=== PATIENT | male | born 1980 | race Caucasian/White ===

== ENCOUNTER 2016-06-11 08:43 | Observation (INO) | payer BC ==
[2016-06-11 08:51] VITALS: BMI 26.6
[2016-06-11] MEDS ORDERED: Oxycodone/Acetaminophen 5/325 mg Tab PO STA (09:33)
[2016-06-11] MEDS ORDERED: Oxycodone/Acetaminophen 5/325 mg Tab ONE (09:36)
[2016-06-11] MEDS ORDERED: Tetanus/Diphtheria Toxoids 0.5 ml Syringe IM ONE ×2 (10:05→10:25)
[2016-06-11] MEDS ORDERED: Bacitracin 500 Units/gm Oint Foilpak UD ONE (10:08)
--- NOTE | 2016-06-11 10:34 | C.PDOC ---
History Of Present Illness A 35 year old male is BIBA for the evaluation of right ankle pain and significant swelling that developed prior to arrival. Patient sustained the injury while walking down the steps at the [facility] train station. Patient states, since the injury was unable to ambulate and put weight on the right ankle due to severe pain. Patient denies any head injury, LOC, syncope, neck pain, CP, abd. pain, N/V, denies injury to B/L UEs, denies numbness, sensory or vascular deficits to Right foot. AT the time of evaluation, appears in pain. Time Seen by Provider: 06/11/16 09:31 Chief Complaint (Nursing): Lower Extremity Problem/Injury History Per: Patient History/Exam Limitations: no limitations Onset/Duration Of Symptoms: Hrs Current Symptoms Are (Timing): Still Present Severity: Severe Recent travel outside of the [place]: No - Ankle/Foot Description Of Injury: Fell Currently Unable To: Bear Weight, Other (Ambulate) Past Medical History Reviewed: Historical Data, Nursing Documentation, Vital Signs Vital Signs: Last Vital Signs Temp 98.7 F 06/11/16 16:42 Pulse 89 06/11/16 16:42 Resp 20 06/11/16 16:42 BP 179/107 H 06/11/16 16:42 Pulse Ox 100 06/11/16 16:42 Family History: States: No Known Family Hx - Social History Hx Alcohol Use: No Hx Substance Use: No - Immunization History Hx Tetanus Toxoid Vaccination: Yes Hx Influenza Vaccination: Yes Hx Pneumococcal Vaccination: Yes Review Of Systems Except As Marked, All Systems Reviewed And Found Negative. Constitutional: Negative for: Fever, Chills Gastrointestinal: Negative for: Nausea, Vomiting, Diarrhea Musculoskeletal: Positive for: Other (Right ankle pain and swelling. Unable to ambulate and bear weight.) Neurological: Negative for: Weakness, Numbness Physical Exam - Physical Exam Appears: Well, Non-toxic Skin: Normal Color, Warm, Dry, No Ecchymosis Head: Atraumatic, Normacephalic Eye(s): bilateral: PERRL Nose: Normal, No Discharge, No Epistaxis, No Deformity, No Tenderness Throat: Normal Neck: Normal ROM, No Midline Cervical Tenderness, No Paracervical Tenderness, Supple Chest: Symmetrical, No Deformity, No Tenderness Cardiovascular: Rhythm Regular Respiratory: Normal Breath Sounds, No Rales, No Rhonchi, No Wheezing Gastrointestinal/Abdominal: Soft, No Tenderness, No Guarding, No Rebound Back: No Vertebral Tenderness, No Paraspinal Tenderness Extremity: Normal ROM (of B/L UEs and LLE.), Tenderness (severe diffuse tenderness and ayala edema more over anterior aspect and lateral malleolus.), No Calf Tenderness, Capillary Refill (less than 2sec to Right foot), Other (Right foot appears cyanotic with good peripheral pulses DP, PT, sensation intact. Snall puncture wounds noted to Right foot lateral dorsal aspect with scant bloody discharges.) Pulses: Left Dorsalis Pedis: Normal, Right Dorsalis Pedis: Normal Neurological/Psych: Oriented x3, Normal Speech, Normal Motor, Normal Sensation, Normal Reflexes ED Course And Treatment - Laboratory Results Result Diagrams: 06/11/16 12:46 06/11/16 12:46 Lab Interpretation: No Acute Changes O2 Sat by Pulse Oximetry: 99 Pulse Ox Interpretation: Normal - Other Rad X-ray X-Ray: Viewed By Me, Read By Radiologist Interpretation: Right Ankle X-ray Impression: As read by Dr. Doherty; Medial and lateral malleolar soft tissue swelling. If pain persists, consider MRI. Right Foot X-ray impression: Impression: As read by Dr. Doherty; Mild hallux valgus deformity. Bipartite lateral sesamoid bone. No evidence for acute displaced fracture or dislocation. Prominent soft tissue swelling at the ankle. If pain persists, consider MRI. Right Tibia/Fibula X-ray Impression: As read by Dr. Doherty; Negative acute. If pain persists, consider MRI. Soft tissue swelling. - CT Scan/US Right Ankle CT Other Rad Studies (CT/US): Read By Radiologist, Radiology Report Reviewed CT/US Interpretation: Right Ankle CT Impression: As read by Dr. Doherty;. 1. Prominent medial and lateral malleolar soft tissue swelling; more prominent on the lateral side. 2. Extensive air noted surrounding the ankle joint space extending into the soft tissues. Underlying gas gangrene can't be excluded on the basis of these images. 3. Small curvilinear ossific density seen distal to the medial malleolus of the tibia concerning for a small avulsion fracture. 4. Curvilinear lucency concerning for a fracture deformity seen at the medial aspect of the mid talus extending to the posterior aspect of the sinus tarsi and what appears to be the middle subtalar joint space. 5. Circumferential reticulation and edema within the subcutaneous soft tissues. 6. Incidentally noted is a small rounded ossific density seen at the lateral base of the 1st metatarsal bone. This is of uncertain clinical etiology and may represent a small accessory ossicle. Small avulsion injury can't be excluded. Clinical correlation to site of pain. This is best seen on series 2, image 44. 7. Lucency through the medial sesamoid bone may represent a bipartite sesamoid bone. Clinical correlation. Progress Note: Initailly xrays or Right anle/foot review and appears without acute fx/dislocation. Findings were discussed with pt and CT Right ankle offered due to significant finidngsof edema and cyanosis to Right foot. Pt agrees. RLE: pulses (DP, PT) palpable, no neurovascular deficits distally to injury. AT 12:00, pt was evaluated by ortho PA and antibiotic Ancef 2gIV recommend. Will consul ortho on-call for further tx. At 12:05, CT imaging discussed with radiologist , medial malleolus and talus fx with extensive amount of air in ankle. Ortho PA Brialy recommend NPO now. At 13:50 , as per Otmarie Doty, case will be taken care by [employer]. Podiatry resident evaluated pt in ED,case discussed with [employer] on-call and foot irrigation with observation admission recommend. Splint applied by Podiatry resident. Admission offered to patient due to radiological finidngs: Right distal tibial fracture, talus fracture with moderate amount of intra- articular air r/o foot gangrene. Admission accepted byt patient. Case discussed with medicine on-call , ID consult recommend. Zosyn IV requested at present time. Disposition - Disposition Disposition: HOSPITALIZED Disposition Time: 14:53 Condition: STABLE - Clinical Impression Clinical Impression: Fracture of distal end of tibia, Gangrene - Scribe Statement The provider has reviewed the documentation as recorded by the Kimberlyibconchis Jacobson All medical record entries made by the Kimberlyibconchis were at my direction and personally dictated by me. I have reviewed the chart and agree that the record accurately reflects my personal performance of the history, physical exam, medical decision making, and the department course for this patient. I have also personally directed, reviewed, and agree with the discharge instructions and disposition.
--- NOTE | 2016-06-11 10:45 | RAD ---
Right ankle three views History: Injury. Comparison: None available. Findings: Prominent lateral malleolar and milder medial malleolar soft tissue swelling. No evidence for acute displaced fracture or dislocation. Impression: Medial and lateral malleolar soft tissue swelling. If pain persists, consider MRI.
--- NOTE | 2016-06-11 10:50 | RAD ---
Right foot three views History: Injury. Comparison: None available. Findings: Mild hallux valgus deformity. Bipartite lateral sesamoid bone. No evidence for acute displaced fracture or dislocation. Prominent soft tissue swelling at the ankle. Impression: Mild hallux valgus deformity. Bipartite lateral sesamoid bone. No evidence for acute displaced fracture or dislocation. Prominent soft tissue swelling at the ankle. If pain persists, consider MRI.
--- NOTE | 2016-06-11 11:02 | RAD ---
Right tibia and fibula two views History: Injury. Comparison: None available. Findings: No evidence of acute displaced fracture or dislocation. Prominent soft tissue swelling overlying the medial and lateral malleolus. Impression: Negative acute. If pain persists, consider MRI. Soft tissue swelling.
[2016-06-11] MEDS ORDERED: ceFAZolin IV 2 gm in Dextrose 1 GM/50 ML BAG IVPB STA (12:04)
[2016-06-11] MEDS ORDERED: ceFAZolin IV 1 gm in Dextrose 0 GM/0 ML BAG IVPB ONE (12:16)
[2016-06-11] MEDS ORDERED: Sodium Chloride 0.9% 1,000 ML IV ONE (12:18)
--- NOTE | 2016-06-11 12:26 | CT ---
CT right ankle History: Ankle injury. Comparison: None available. Technique: Multiple contiguous axial images were performed through the right ankle without the use of intravenous contrast. Subsequently, sagittal and coronal reformatted images were obtained. This CT exam was performed using one or more of the following dose reduction techniques: Automated exposure control, adjustment of the mA and/or kV according to patient size, and/or use of iterative reconstruction technique. Findings: Prominent medial and lateral malleolar soft tissue swelling; more prominent on the lateral side. Extensive air noted surrounding the ankle joint space extending into the soft tissues. Underlying gas gangrene can't be excluded on the basis of these images. Small curvilinear ossific density seen distal to the medial malleolus of the tibia concerning for a small avulsion fracture. Curvilinear lucency concerning for a fracture deformity seen at the medial aspect of the mid talus extending to the posterior aspect of the sinus tarsi and what appears to be the middle subtalar joint space. Circumferential reticulation and edema within the subcutaneous soft tissues. Incidentally noted is a small rounded ossific density seen at the lateral base of the 1st metatarsal bone. This is of uncertain clinical etiology and may represent a small accessory ossicle. Small avulsion injury can't be excluded. Clinical correlation to site of pain. This is best seen on series 2, image 44. Lucency through the medial sesamoid bone may represent a bipartite sesamoid bone. Clinical correlation. Impression: 1. Prominent medial and lateral malleolar soft tissue swelling; more prominent on the lateral side. 2. Extensive air noted surrounding the ankle joint space extending into the soft tissues. Underlying gas gangrene can't be excluded on the basis of these images. 3. Small curvilinear ossific density seen distal to the medial malleolus of the tibia concerning for a small avulsion fracture. 4. Curvilinear lucency concerning for a fracture deformity seen at the medial aspect of the mid talus extending to the posterior aspect of the sinus tarsi and what appears to be the middle subtalar joint space. 5. Circumferential reticulation and edema within the subcutaneous soft tissues. 6. Incidentally noted is a small rounded ossific density seen at the lateral base of the 1st metatarsal bone. This is of uncertain clinical etiology and may represent a small accessory ossicle. Small avulsion injury can't be excluded. Clinical correlation to site of pain. This is best seen on series 2, image 44. 7. Lucency through the medial sesamoid bone may represent a bipartite sesamoid bone. Clinical correlation. These findings were relayed to Huma Olsen at 12:10 p.m. on 06/11/2016.
[2016-06-11] MEDS ORDERED: ceFAZolin 1 gm FROZEN Premix 2 GM/100 ML ML IVPB ONE (12:46)
[2016-06-11] MEDS ORDERED: Sodium Chloride 0.9% 1,000 ML ONE (12:47)
[2016-06-11 12:54] LABS: BASO # 0.1 K/uL (0.0-0.2); BASO % 0.8 % (0.0-2.0); EOS # 0.1 K/uL (0.0-0.7); EOS % 0.8 % (0.0-4.0); HEMATOCRIT 44.6 % (35.0-51.0); LYMPH # 2.3 K/uL (1.0-4.3); MEAN CELL VOLUME 88.9 fL (80.0-94.0); MEAN CORPUSCULAR HEMOGLOBIN 29.8 pg (27.0-31.0); MEAN CORPUSCULAR HGB CONC 33.5 g/dL (33.0-37.0); MONO # 0.7 K/uL (0.0-0.8); MONO % 5.8 % (0.0-10.0); RED CELL DISTRIBUTION WIDTH 12.9 % (11.5-14.5); WHITE BLOOD COUNT 11.9 K/uL (4.8-10.8)
[2016-06-11 13:08] LABS: CHLORIDE 100 mmol/L (98-107); SODIUM 139 mmol/L (132-148)
[2016-06-11 13:11] LABS: CARBON DIOXIDE 26 mmol/L (22-30); GFR AFRICAN-AMERICAN > 60
[2016-06-11 13:12] LABS: BLOOD UREA NITROGEN 7 mg/dL (9-20); CALCIUM 9.3 mg/dl (8.6-10.4); GLUCOSE,RANDOM 92 mg/dL (75-110)
--- NOTE | 2016-06-11 13:59 | CP.PCM.CON ---
History of Present Illness - History of Present Illness History of Present Illness: Orthopedic consultation requested Dr. Orta for right ankle injury 35M complains of severe right ankle pain and swelling after falling [place] stairs [place] train station. He is unable to bear weight after the injury. He denies numbness/tingling. Denies pain in other extremities. Denies CP/SOB/dizziness preceding fall. He denies any obvious dislocation or spontaneous reduction sensation. PMH: seasonal allergies PSH: denies NKDA smokes 2-3 cigarettes/day Review of Systems - Review of Systems All systems: reviewed and no additional remarkable complaints except - Constitutional Additional comments: denies fatigue - Cardiovascular Cardiovascular: As Per HPI - Respiratory Respiratory: As Per HPI - Musculoskeletal Musculoskeletal: As Per HPI - Integumentary Integumentary: Wounds - Neurological Neurological: As Per HPI - Hematologic/Lymphatic Hematologic: absent: As Per HPI, Easy Bleeding, Easy Bruising, Lymphadenopathy, Other Past Patient History - Past Social History Smoking Status: Never Smoked - PSYCHIATRIC Hx Substance Use: No - SURGICAL HISTORY Hx Surgeries: No Meds Allergies/Adverse Reactions: Allergies Allergy/AdvReac Type Severity Reaction Status Date / Time No Known Allergies Allergy Verified 06/11/16 08:49 - Medications Medications: Current Medications Sodium Chloride (Sodium Chloride 0.9%) 1,000 mls @ 200 mls/hr IV .Q5H ONE Stop: 06/11/16 17:17 Last Admin: 06/11/16 13:00 Dose: 200 mls/hr Physical Exam - Constitutional Appears: Well, In Acute Distress - Head Exam Head Exam: ATRAUMATIC - ENT Exam ENT Exam: Mucous Membranes Moist - Neck Exam Neck exam: Positive for: Full Rom, Normal Inspection - Respiratory Exam Respiratory Exam: NORMAL BREATHING PATTERN - Cardiovascular Exam Additional comments: +DP/PT pulses, palpable - Extremities Exam Additional comments: +flex/ext of all toes and great toe, but limited by pain. Sensation intact to sural/saph/SP/DP/med/lat plantar nerves. ? slightly decreased to 1st dorsal webspace. Lower leg compartments soft Minimal pain with passive ROM toes noted laxity with anterior drawer, +pain no right knee pain, no proximal fibular tenderness - Expanded Lower Extremities Exam Right Neuro vacular tendon exam: no vascular compromise Gait: not tested/not observed - Neurological Exam Neurological exam: Alert, Oriented x3 - Psychiatric Exam Psychiatric exam: Normal Affect, Normal Mood - Skin Skin Exam: Normal Color, Warm Additional comments: 3 wounds to lateral ankle noted, anteriorly over distal tib/fib joint, near inferior border of lateral malleolus, and posterior to lateral malleolus. all approx 6-8mm, active but minimal bleeding from inferior wound. Extensive STS to medial and lateral ankle and to foot. Results - Vital Signs Recent Vital Signs: Last Vital Signs Temp 97.6 F 06/11/16 08:59 Pulse 66 06/11/16 08:59 Resp 18 06/11/16 08:59 BP 160/96 H 06/11/16 08:59 Pulse Ox 99 06/11/16 12:29 - Labs Result Diagrams: 06/11/16 12:46 06/11/16 12:46 Labs: Laboratory Results - last 24 hr 06/11/16 06/11/16 06/11/16 12:46 12:46 12:46 WBC 11.9 H RBC 5.02 Hgb 15.0 Hct 44.6 MCV 88.9 MCH 29.8 MCHC 33.5 RDW 12.9 Plt Count 267 MPV 9.0 Neut % (Auto) 73.6 Lymph % (Auto) 19.0 L [place] % (Auto) 5.8 Eos % (Auto) 0.8 Baso % (Auto) 0.8 Neut # 8.8 H Lymph # 2.3 [place] # 0.7 Eos # 0.1 Baso # 0.1 PT 10.8 INR 1.0 APTT 33 Sodium 139 Potassium 4.0 Chloride 100 Carbon Dioxide 26 Anion Gap 17 BUN 7 L Creatinine 0.7 L Est GFR ( Amer) > 60 Est GFR (Non-Af Amer) > 60 Random Glucose 92 Calcium 9.3 Assessment & Plan (1) Fracture of right talus Assessment and Plan: comminuted and minimally displaced Status: Acute (2) Avulsion fracture of medial malleolus of right tibia Assessment and Plan: suspect possible deltoid tear/avulsion Status: Acute (3) Open dislocation of ankle Assessment and Plan: noted on CT substantial amount of air in ankle joint and surrounding soft tissues Due to location of lateral ankle wounds and extensive soft tissue swelling, suspect possible open ankle or subtalar dislocation/subluxation with spontaneous reduction versus severe sprain. Smoking cessation advised tetanus already given. Ancef 2gm IV ordered at this time. Elevation, pain medication, irrigation recommended. NPO ordered for now. case discussed with Dr. Orta, orthopedic surgeon targeting acquisition officer. He recommends podiatry consultation. D/w Dr. Fishman and podiatry resident, agree to take over care. Will defer further workup and management to medical office representative as per Dr. Orta. ER PA notified of transfer of care around 1pm. Status: Suspected Priority: High Radiology Interpretation - Radiology Interpretation #2 Interpretation: Patient Name / ID : BREANNA NEVAREZ / [id number] Exam Date : 06/11/2016 11:04:41 ( Approved ) Study Comment : Sex / Age : M / 35Y Creator : Augie Doherty MD Dictator : Augie Doherty MD Patient Registration Specialist : Equine Manager : Augie Doherty MD Approver2 : Report Date : 06/11/2016 12:24:28 My Comment : CT right ankle History: Ankle injury. Comparison: None available. Technique: Multiple contiguous axial images were performed through the right ankle without the use of intravenous contrast. Subsequently, sagittal and coronal reformatted images were obtained. This CT exam was performed using one or more of the following dose reduction techniques: Automated exposure control, adjustment of the mA and/or kV according to patient size, and/or use of iterative reconstruction technique. Findings: Prominent medial and lateral malleolar soft tissue swelling; more prominent on the lateral side. Extensive air noted surrounding the ankle joint space extending into the soft tissues. Underlying gas gangrene can't be excluded on the basis of these images. Small curvilinear ossific density seen distal to the medial malleolus of the tibia concerning for a small avulsion fracture. Curvilinear lucency concerning for a fracture deformity seen at the medial aspect of the mid talus extending to the posterior aspect of the sinus tarsi and what appears to be the middle subtalar joint space. Circumferential reticulation and edema within the subcutaneous soft tissues. Incidentally noted is a small rounded ossific density seen at the lateral base of the 1st metatarsal bone. This is of uncertain clinical etiology and may represent a small accessory ossicle. Small avulsion injury can't be excluded. Clinical correlation to site of pain. This is best seen on series 2, image 44. Lucency through the medial sesamoid bone may represent a bipartite sesamoid bone. Clinical correlation. Impression: 1. Prominent medial and lateral malleolar soft tissue swelling; more prominent on the lateral side. 2. Extensive air noted surrounding the ankle joint space extending into the soft tissues. Underlying gas gangrene can't be excluded on the basis of these images. 3. Small curvilinear ossific density seen distal to the medial malleolus of the tibia concerning for a small avulsion fracture. 4. Curvilinear lucency concerning for a fracture deformity seen at the medial aspect of the mid talus extending to the posterior aspect of the sinus tarsi and what appears to be the middle subtalar joint space. 5. Circumferential reticulation and edema within the subcutaneous soft tissues. 6. Incidentally noted is a small rounded ossific density seen at the lateral base of the 1st metatarsal bone. This is of uncertain clinical etiology and may represent a small accessory ossicle. Small avulsion injury can't be excluded. Clinical correlation to site of pain. This is best seen on series 2, image 44. 7. Lucency through the medial sesamoid bone may represent a bipartite sesamoid bone. Clinical correlation. These findings were relayed to Huma Olsen at 12:10 p.m. on 06/11/2016. Dictator : Augie Doherty MD Patient Registration Specialist : Equine Manager : Augie Doherty MD Approver2 : Report Date : 06/11/2016 10:04:20 My Comment : Right tibia and fibula two views History: Injury. Comparison: None available. Findings: No evidence of acute displaced fracture or dislocation. Prominent soft tissue swelling overlying the medial and lateral malleolus. Impression: Negative acute. If pain persists, consider MRI. Soft tissue swelling. - Radiology Interpretation #3 Interpretation: atient Name / ID : BREANNA NEVAREZ / [id number] Exam Date : 06/11/2016 09:37:35 ( Approved ) Study Comment : Sex / Age : M / 35Y Creator : MANUEL LOYA Dictator : Augie Doherty MD Patient Registration Specialist : Equine Manager : Augie Doherty MD Approver2 : Report Date : 06/11/2016 10:04:20 My Comment : Right foot three views History: Injury. Comparison: None available. Findings: Mild hallux valgus deformity. Bipartite lateral sesamoid bone. No evidence for acute displaced fracture or dislocation. Prominent soft tissue swelling at the ankle. Impression: Mild hallux valgus deformity. Bipartite lateral sesamoid bone. No evidence for acute displaced fracture or dislocation. Prominent soft tissue swelling at the ankle. If pain persists, consider MRI. Patient Name / ID : BREANNA NEVAREZ / [id number] Exam Date : 06/11/2016 09:37:24 ( Addendum_Approved ) Study Comment : Sex / Age : M / 35Y Creator : MANUEL LOYA Dictator : Augie Doherty MD Patient Registration Specialist : Equine Manager : Augie Doherty MD Approver2 : Report Date : 06/11/2016 10:04:21 My Comment : ADDENDUM: Addendum: Small ossific density seen distal to the medial malleolus suggestive for small avulsion injury. Curvilinear lucency through the medial aspect of the mid talus concerning for possible fracture deformity. Suggestion of air noted within the subcutaneous soft tissues for which underlying gas gangrene can not be excluded. [ Addendum Report Added by Augie Doherty MD at 06/11/2016 12:26:30 ] Right ankle three views History: Injury. Comparison: None available. Findings: Prominent lateral malleolar and milder medial malleolar soft tissue swelling. No evidence for acute displaced fracture or dislocation. Impression: Medial and lateral malleolar soft tissue swelling. If pain persists, consider MRI.
--- NOTE | 2016-06-11 14:44 | CP.PCM.CON ---
History of Present Illness - History of Present Illness History of Present Illness: Podiatry consult note- Dr. Parada 35 year old male with PMHx of seasonal allergies, presenting to the ED with a chief complaint of right foot and ankle pain and swelling after [place]pping [place] the stairs [place] Patient states that he felt his ankle twist inward underneath him and states that he rolled on the stairs. Patient denies hitting any sharp objects as he descended the staircase. Patient denies n/v/f/c/sob, denies any other injuries to his body. Patient received tetanus prophylaxis and IV Ancef upon admission to the ED. X-rays and CT scan performed. Review of Systems - Constitutional Constitutional: As Per HPI Past Patient History - Past Social History Smoking Status: Never Smoked - PSYCHIATRIC Hx Substance Use: No - SURGICAL HISTORY Hx Surgeries: No Meds Allergies/Adverse Reactions: Allergies Allergy/AdvReac Type Severity Reaction Status Date / Time No Known Allergies Allergy Verified 06/11/16 08:49 - Medications Medications: Current Medications Sodium Chloride (Sodium Chloride 0.9%) 1,000 mls @ 200 mls/hr IV .Q5H ONE Stop: 06/11/16 17:17 Last Admin: 06/11/16 13:00 Dose: 200 mls/hr Physical Exam - Constitutional Appears: Well, Non-toxic, No Acute Distress - Neurological Exam Neurological exam: Oriented x3 - Psychiatric Exam Psychiatric exam: Normal Affect, Normal Mood - Additional Findings Additional findings: DERMATOLOGIC: Right lower extremity has three small puncture wounds to the lateral aspect of the foot and ankle, the two proximal wounds are superficial while the most distal wound is deep with mild sanguinous drainage. There is no fluid or blood expressed with manual compression of the soft tissue. The skin color is mildly blanched at the area of maximal edema, however distal to the wound skin color is normal.. There is mild ecchymosis posteriorly. VASCULAR: DP/PT pulses non palpable on the right secondary to severe edema. There is severe localized and diffuse edema to the extremity, localized to the lateral foot and ankle. Skin temperature is within normal limits. NEUROLOGIC: There is mild decreased sensation to the lateral aspect of the foot, motor function is intact both proximally and distally to all 10 toes ORTHOPEDIC: Severe pain on palpation to the right ankle and foot, ankle ROM is slighty limited due to edema Imaging: right lower extremity CT scan Impression: 1. Prominent medial and lateral malleolar soft tissue swelling; more prominent on the lateral side. 2. Extensive air noted surrounding the ankle joint space extending into the soft tissues. Underlying gas gangrene can't be excluded on the basis of these images. 3. Small curvilinear ossific density seen distal to the medial malleolus of the tibia concerning for a small avulsion fracture. 4. Curvilinear lucency concerning for a fracture deformity seen at the medial aspect of the mid talus extending to the posterior aspect of the sinus tarsi and what appears to be the middle subtalar joint space. 5. Circumferential reticulation and edema within the subcutaneous soft tissues. 6. Incidentally noted is a small rounded ossific density seen at the lateral base of the 1st metatarsal bone. This is of uncertain clinical etiology and may represent a small accessory ossicle. Small avulsion injury can't be excluded. Clinical correlation to site of pain. This is best seen on series 2, image 44. 7. Lucency through the medial sesamoid bone may represent a bipartite sesamoid bone. Clinical correlation. Results - Vital Signs Recent Vital Signs: Last Vital Signs Temp 98.9 F 06/11/16 13:00 Pulse 73 06/11/16 14:18 Resp 18 06/11/16 14:18 BP 139/86 06/11/16 14:18 Pulse Ox 99 06/11/16 14:18 - Labs Result Diagrams: 06/11/16 12:46 06/11/16 12:46 Labs: Laboratory Results - last 24 hr 06/11/16 06/11/16 06/11/16 12:46 12:46 12:46 WBC 11.9 H RBC 5.02 Hgb 15.0 Hct 44.6 MCV 88.9 MCH 29.8 MCHC 33.5 RDW 12.9 Plt Count 267 MPV 9.0 Neut % (Auto) 73.6 Lymph % (Auto) 19.0 L [place] % (Auto) 5.8 Eos % (Auto) 0.8 Baso % (Auto) 0.8 Neut # 8.8 H Lymph # 2.3 [place] # 0.7 Eos # 0.1 Baso # 0.1 PT 10.8 INR 1.0 APTT 33 Sodium 139 Potassium 4.0 Chloride 100 Carbon Dioxide 26 Anion Gap 17 BUN 7 L Creatinine 0.7 L Est GFR ( Amer) > 60 Est GFR (Non-Af Amer) > 60 Random Glucose 92 Calcium 9.3 Assessment & Plan - Assessment and Plan (Free Text) Assessment: 35 year old male with right non displaced talar fracture, and small avulsion fracture of the tibia with soft tissue puncture wounds Plan: Patient seen and evaluated, d/w attending Dr. Parada CT scan and x-rays reviewed Puncture wounds irrigated with saline betadine solution, foot dressed with xeroform, DSD and posterior splint applied to RLE Patient to remain NWB to the RLE Patient to ice and elevate the RLE Will monitor patient overnight for worsening of symptoms Patient to continue IV abx Podiatry will continue to follow
[2016-06-11] MEDS ORDERED: Piperacillin/Tazobact 3.375 gm 100 ML IV STA (14:50)
[2016-06-11] MEDS ORDERED: Morphine 4 MG/ML VIAL ONE (15:15)
[2016-06-11] MEDS ORDERED: Piperacillin/Tazobact 3.375 gm 100 ML IVPB ONE (15:16)
[2016-06-11 15:36] VITALS: RESP 20
[2016-06-11] MEDS: Morphine 4 MG/ML VIAL IVP PRN (16:46)
--- NOTE | 2016-06-11 18:35 | CP.PCM.HP ---
History of Present Illness - History of Present Illness History of Present Illness: 35-year-old maleis BIBA for the evaluation of right ankle pain and significant swelling that developed prior to arrival. Patient sustained the injury [place] Patient states, since the injury was unable to ambulate and put weight on the right ankle due to severe pain. Patient denies any heavy injury, LOC, syncope, neck pain, chest pain, abdominal pain, nausea/vomiting, denies injury to bilateral upper extremities, denies numbness, sensory or vascular deficits right foot. At the time of evaluation, appears in pain. Present on Admission - Present on Admission Any Indicators Present on Admission: No Past Patient History - Past Medical History & Family History Past Medical History?: No - Past Social History Smoking Status: Never Smoked - MUSCULOSKELETAL/RHEUMATOLOGICAL Hx Falls: Yes - PSYCHIATRIC Hx Substance Use: No - SURGICAL HISTORY Hx Surgeries: Yes Other/Comment: [place] teeth removal - ANESTHESIA Hx Anesthesia: Yes Hx Anesthesia Reactions: No Hx Malignant Hyperthermia: No Has any member of the family had a problem w/ anesthesia?: No Meds Allergies/Adverse Reactions: Allergies Allergy/AdvReac Type Severity Reaction Status Date / Time No Known Allergies Allergy Verified 06/11/16 08:49 Physical Exam - Constitutional Appears: Well - Head Exam Head Exam: ATRAUMATIC, NORMAL INSPECTION, NORMOCEPHALIC - Eye Exam Eye Exam: EOMI, Normal appearance, PERRL Pupil Exam: NORMAL ACCOMODATION, PERRL - ENT Exam ENT Exam: Mucous Membranes Moist, Normal Exam - Respiratory Exam Respiratory Exam: Decreased Breath Sounds - Cardiovascular Exam Cardiovascular Exam: REGULAR RHYTHM, +S1, +S2 - GI/Abdominal Exam GI & Abdominal Exam: Diminished Bowel Sounds, Soft - Rectal Exam Rectal Exam: Deferred Results - Vital Signs Recent Vital Signs: Last Vital Signs Temp 98.7 F 06/11/16 16:42 Pulse 89 06/11/16 16:42 Resp 20 06/11/16 16:42 BP 179/107 H 06/11/16 16:42 Pulse Ox 100 06/11/16 16:42 - Labs Result Diagrams: 06/11/16 12:46 06/11/16 12:46 Assessment & Plan (1) Avulsion fracture of medial malleolus of right tibia Status: Acute (2) Fracture of right talus Status: Acute (3) Open dislocation of ankle Status: Suspected Priority: High - Assessment and Plan (Free Text) Plan: Labs reviewed Consults Pain meds Dr. Parada Ice application and elevation of right lower extremity Antibiotics
[2016-06-11] MEDS: Piperacillin/Tazobact 3.375 GM in Sodium Chloride 0.9% 100 ML IVPB SCH (22:40)
[2016-06-12] MEDS: Morphine 4 MG/ML VIAL IVP PRN ×3 (00:21→15:21)
[2016-06-12] MEDS: Piperacillin/Tazobact 3.375 GM in Sodium Chloride 0.9% 100 ML IVPB SCH (05:18)
[2016-06-12 07:57] VITALS: O2SAT 98
--- NOTE | 2016-06-12 08:50 | CP.PCM.PN ---
Subjective - Date & Time of Evaluation Date of Evaluation: 06/12/16 Time of Evaluation: 08:48 - Subjective Subjective: Patient seen and evaluated at bedside this morning, NAD. Patient states that pain is improved since yesterday, state that peak of pain occurred around 5 pm yesterday. Patient denies n/v/f/c/sob. Posterior splint is clean dry and intact to the RLE. No new complaints at this time. Objective - Vital Signs/Intake and Output Vital Signs (last 24 hours): Temp Pulse Resp BP Pulse Ox 98.1 F 84 20 159/105 H 98 06/12/16 07:56 06/12/16 07:56 06/12/16 07:56 06/12/16 07:56 06/12/16 07:56 Intake and Output: 06/12/16 06/12/16 06:59 18:59 Intake Total 400 Output Total 1400 Balance -1000 - Medications Medications: Current Medications Enoxaparin Sodium (Lovenox) 40 mg SC DAILY [facility] Piperacillin Sod/Tazobactam (Sod 3.375 gm/ Sodium Chloride) 100 mls @ 200 mls/ hr IVPB Q8H [facility] Last Admin: 06/12/16 05:18 Dose: 200 mls/hr Morphine Sulfate (Morphine) 4 mg IVP Q6 PRN PRN Reason: Pain, severe (8-10) Last Admin: 06/12/16 08:03 Dose: 4 mg Pantoprazole Sodium (Protonix Ec Tab) 40 mg PO DAILY [facility] - Labs Labs: PT 10.8 SECONDS (9.7-12.2) 06/11/16 12:46 INR 1.0 06/11/16 12:46 APTT 33 SECONDS (21-34) 06/11/16 12:46 - Constitutional Appears: Well, Non-toxic, No Acute Distress - Neurological Exam Neurological Exam: Oriented x3 - Psychiatric Exam Psychiatric exam: Normal Affect, Normal Mood - Additional Findings Additional findings: Right lower extremity: DERMATOLOGIC: Right lower extremity has three small puncture wounds to the lateral aspect of the foot and ankle, the two proximal wounds are superficial while the most distal wound is deep with mild sanguinous drainage. There is mild sanguinous drainage present from the wounds. Skin color appears normal at this time. There are sterile fracture blisters at the lateral and posterolateral aspect of the foot/ankle. VASCULAR: DP/PT pulses 2/4, IN [employer]<3 seconds, skin temperature is WNL. There is diffuse edema of the RLE with localized edema at the lateral foot and ankle. NEUROLOGIC: Sensation intact to all digits, motor function intact to digits x5 ORTHOPEDIC: Severe pain on palpation to the right ankle and foot, ankle ROM is slighty limited due to edema Assessment and Plan - Assessment and Plan (Free Text) Assessment: 35 year old male with right lower extremity non displaced talar fracture Plan: Patient seen and evaluated, d/w attending Dr. Parada Patients bandages changed, applied bactroban, DSD Applied posterior splint to RLE Patient to continue strict elevation and icing of the RLE Patient to remain NwB to RLE, PT consult ordered for crutch training Patient cleared to DC per podiatry after PT training Patient will f/u with Dr. Parada in her [place] office Patient will require PO abx and pain medicine upon DC
--- NOTE | 2016-06-12 09:52 | CP.PCM.PN ---
Subjective - Date & Time of Evaluation Date of Evaluation: 06/12/16 Time of Evaluation: 09:30 - Subjective Subjective: PGY2 Medicine Note - Dr. Moises Suero's service: Patient concepción he came in yesterday for pain in his right foot after falling. Patient says the doctor took his socks off and saw a huge wound he did not even know he had. Patient says he has been having pain there but he never thought to look at his foot. Patient reports burning pain in his foot. Patient denies fever, chills, chest pain, SOB. Objective - Vital Signs/Intake and Output Vital Signs (last 24 hours): Temp Pulse Resp BP Pulse Ox 98.1 F 84 20 159/105 H 98 06/12/16 07:56 06/12/16 07:56 06/12/16 07:56 06/12/16 07:56 06/12/16 07:56 Intake and Output: 06/12/16 06/12/16 06:59 18:59 Intake Total 400 Output Total 1400 Balance -1000 - Medications Medications: Current Medications Enoxaparin Sodium (Lovenox) 40 mg SC DAILY [facility] Piperacillin Sod/Tazobactam (Sod 3.375 gm/ Sodium Chloride) 100 mls @ 200 mls/ hr IVPB Q8H [facility] Last Admin: 06/12/16 05:18 Dose: 200 mls/hr Morphine Sulfate (Morphine) 4 mg IVP Q6 PRN PRN Reason: Pain, severe (8-10) Last Admin: 06/12/16 08:03 Dose: 4 mg Pantoprazole Sodium (Protonix Ec Tab) 40 mg PO DAILY [facility] - Labs Labs: PT 10.8 SECONDS (9.7-12.2) 06/11/16 12:46 INR 1.0 06/11/16 12:46 APTT 33 SECONDS (21-34) 06/11/16 12:46 - Constitutional Appears: Non-toxic, No Acute Distress - Head Exam Head Exam: NORMAL INSPECTION - Eye Exam Eye Exam: EOMI - ENT Exam ENT Exam: Mucous Membranes Moist - Respiratory Exam Respiratory Exam: Clear to Ausculation Bilateral, NORMAL BREATHING PATTERN. absent: Rales, Rhonchi, Wheezes - Cardiovascular Exam Cardiovascular Exam: REGULAR RHYTHM, +S1, +S2. absent: Gallop, Rubs, Murmur - GI/Abdominal Exam GI & Abdominal Exam: Soft, Normal Bowel Sounds. absent: Tenderness - Extremities Exam Additional comments: right foot, ankle and brooke wrapped in gauze and christiano bandage. ice on right thigh - Neurological Exam Neurological Exam: Alert, Oriented x3 - Psychiatric Exam Psychiatric exam: Normal Affect, Normal Mood - Skin Skin Exam: Warm Assessment and Plan - Assessment and Plan (Free Text) Assessment: Right ankle infection Zosyn IVPB in hospital Will give script for clindamycin 300mg PO Q8H x 2 weeks Needs to f/u in Dr. Parada's office within one week Right ankle fracture CT shows: 1. Prominent medial and lateral malleolar soft tissue swelling; more prominent on the lateral side. 2. Extensive air noted surrounding the ankle joint space extending into the soft tissues. Underlying gas gangrene can't be excluded on the basis of these images. 3. Small curvilinear ossific density seen distal to the medial malleolus of the tibia concerning for a small avulsion fracture. 4. Curvilinear lucency concerning for a fracture deformity seen at the medial aspect of the mid talus extending to the posterior aspect of the sinus tarsi and what appears to be the middle subtalar joint space. 5. Circumferential reticulation and edema within the subcutaneous soft tissues. 6. Incidentally noted is a small rounded ossific density seen at the lateral base of the 1st metatarsal bone. This is of uncertain clinical etiology and may represent a small accessory ossicle. Small avulsion injury can't be excluded. Clinical correlation to site of pain. This is best seen on series 2, image 44. 7. Lucency through the medial sesamoid bone may represent a bipartite sesamoid bone. Clinical correlation. Splint on ankle Needs to f/u in Dr. Parada's office within one week Script will be given for gabapentin for burning pain and for another pain med - will discuss with Dr. Moises Suero
[2016-06-12] MEDS ORDERED: Pantoprazole 40 mg EC Tab PO SCH (10:00)
[2016-06-12] MEDS ORDERED: Enoxaparin 40 mg Syringe SC SCH (10:00)
--- NOTE | 2016-06-12 13:03 | CP.PCM.CON ---
History of Present Illness - History of Present Illness History of Present Illness: 35M complains of severe right ankle pain and swelling [place] He is unable to bear weight after the injury. He denies numbness/tingling. Denies pain in other extremities. Denies CP/SOB/dizziness preceding fall. He denies any obvious dislocation or spontaneous reduction sensation. PMH: seasonal allergies PSH: denies NKDA smokes 2-3 cigarettes/day +DP/PT pulses, palpable - Extremities Exam Additional comments: +flex/ext of all toes and great toe, but limited by pain. Sensation intact to sural/saph/SP/DP/med/lat plantar nerves. ? slightly decreased to 1st dorsal webspace. Lower leg compartments soft Minimal pain with passive ROM toes noted laxity with anterior drawer, +pain no right knee pain, no proximal fibular tenderness 3 wounds to lateral ankle noted, anteriorly over distal tib/fib joint, near inferior border of lateral malleolus, and posterior to lateral malleolus. all approx 6-8mm, active but minimal bleeding from inferior wound. Extensive STS to medial and lateral ankle and to foot. (1) Fracture of right talus Assessment and Plan: comminuted and minimally displaced Status: Acute (2) Avulsion fracture of medial malleolus of right tibia Assessment and Plan: suspect possible deltoid tear/avulsion Status: Acute (3) Open dislocation of ankle Assessment and Plan: noted on CT substantial amount of air in ankle joint and surrounding soft tissues Due to location of lateral ankle wounds and extensive soft tissue swelling, suspect possible open ankle or subtalar dislocation/subluxation with spontaneous reduction versus severe sprain. CT right ankle History: Ankle injury. Comparison: None available. Technique: Multiple contiguous axial images were performed through the right ankle without the use of intravenous contrast. Subsequently, sagittal and coronal reformatted images were obtained. This CT exam was performed using one or more of the following dose reduction techniques: Automated exposure control, adjustment of the mA and/or kV according to patient size, and/or use of iterative reconstruction technique. Findings: Prominent medial and lateral malleolar soft tissue swelling; more prominent on the lateral side. Extensive air noted surrounding the ankle joint space extending into the soft tissues. Underlying gas gangrene can't be excluded on the basis of these images. Small curvilinear ossific density seen distal to the medial malleolus of the tibia concerning for a small avulsion fracture. Curvilinear lucency concerning for a fracture deformity seen at the medial aspect of the mid talus extending to the posterior aspect of the sinus tarsi and what appears to be the middle subtalar joint space. Circumferential reticulation and edema within the subcutaneous soft tissues. Incidentally noted is a small rounded ossific density seen at the lateral base of the 1st metatarsal bone. This is of uncertain clinical etiology and may represent a small accessory ossicle. Small avulsion injury can't be excluded. Clinical correlation to site of pain. This is best seen on series 2, image 44. Lucency through the medial sesamoid bone may represent a bipartite sesamoid bone. Clinical correlation. Impression: 1. Prominent medial and lateral malleolar soft tissue swelling; more prominent on the lateral side. 2. Extensive air noted surrounding the ankle joint space extending into the soft tissues. Underlying gas gangrene can't be excluded on the basis of these images. 3. Small curvilinear ossific density seen distal to the medial malleolus of the tibia concerning for a small avulsion fracture. 4. Curvilinear lucency concerning for a fracture deformity seen at the medial aspect of the mid talus extending to the posterior aspect of the sinus tarsi and what appears to be the middle subtalar joint space. 5. Circumferential reticulation and edema within the subcutaneous soft tissues. 6. Incidentally noted is a small rounded ossific density seen at the lateral base of the 1st metatarsal bone. This is of uncertain clinical etiology and may represent a small accessory ossicle. Small avulsion injury can't be excluded. Clinical correlation to site of pain. This is best seen on series 2, image 44. 7. Lucency through the medial sesamoid bone may represent a bipartite sesamoid bone. Clinical correlation. These findings were relayed to Huma Olsen at 12:10 p.m. on 06/11/2016. Dictator : Augie Doherty MD Soft Boarder : Press Setup Operator : Augie Doherty MD Approver2 : Report Date : 06/11/2016 10:04:20 My Comment : Review of Systems - Constitutional Constitutional: As Per HPI - EENT Eyes: absent: As Per HPI, Blind Spots, Blurred Vision, Change in Vision, Decreased Night Vision, Diplopia, Discharge, Dry Eye, Exophthalmos, Floaters, Irritation, Itchy Eyes, Loss of Peripheral Vision, Pain, Photophobia, Requires Corrective Lenses, Sees Flashes, Spots in Vision, Tunnel Vision, Other Visual Disturbances, Loss of Vision, Other Ears: absent: As Per HPI, Decreased Hearing, Ear Discharge, Ear Pain, Tinnitus, Abnormal Hearing, Disequilibrium, Dizziness, Other Nose/Mouth/Throat: absent: As Per HPI, Epistaxis, Nasal Congestion, Nasal Discharge, Nasal Obstruction, Nasal Trauma, Nose Pain, Post Nasal Drip, Sinus Pain, Sinus Pressure, Bleeding Gums, Change in Voice, Dental Pain, Dry Mouth, Dysphagia, Halitosis, Hoarsness, Lip Swelling, Mouth Lesions, Mouth Pain, Odynophagia, Sore Throat, Throat Swelling, Tongue Swelling, Facial Pain, Neck Pain, Neck Mass, Other - Cardiovascular Cardiovascular: absent: As Per HPI, Acrocyanosis, Chest Pain, Chest Pain at Rest , Chest Pain with Activity, Claudication, Diaphoresis, Dyspnea, Dyspnea on Exertion, Edema, Irregular Heart Rhythm, Pain Radiating to Arm/Neck/Jaw, Leg Edema, Leg Ulcers, Lightheadedness, Orthopnea, Palpitations, Paroxysmal Nocturnal Dyspnea, Pedal Edema, Radiating Pain, Rapid Heart Rate, Slow Heart Rate, Syncope, Other - Respiratory Respiratory: absent: As Per HPI, Cough, Dyspnea, Hemoptysis, Dyspnea on Exertion , Wheezing, Snoring, Stridor, Pain on Inspiration, Chest Congestion, Excessive Mucous Production, Change in Mucous Color, Pain with Coughing, Other - Gastrointestinal Gastrointestinal: absent: As Per HPI, Abdominal Pain, Belching, Bloating, Change in Bowel Habits, Change in Stool Character, Coffee Ground Emesis, Constipation, Cramping, Diarrhea, Dyspepsia, Dysphagia, Early Satiety, Excessive Flatus, Fecal Incontinence, Heartburn, Hematemesis, Hematochezia, Loose Stools, Melena, Nausea, Odynophagia, Temesmus, Vomiting, Other - Genitourinary Genitourinary: absent: As Per HPI, Change in Urinary Stream, Difficulty Urinating, Dysuria, Flank Pain, Hematuria, Pyuria, Nocturia, Urinary Incontinence, Urinary Frequency, Urinary Hesitance, Urinary Urgency, Voiding Freq/Small Amts, Freq UTI, Hx Renal/Bladder Calculi, Hx /Renal Surgery, Bladder Distension, Other - Musculoskeletal Musculoskeletal: absent: As Per HPI, Abnormal Gait, Arthralgias, Atrophy, Back Pain, Deformity, Joint Swelling, Limited Range of Motion, Loss of Height, Muscle Cramps, Muscle Weakness, Myalgias, Neck Pain, Numbness, Radiating Pain into Limb, Stiffness, Tingling, Other - Integumentary Integumentary: As Per HPI - Neurological Neurological: absent: As Per HPI, Abnormal Gait, Abnormal Hearing, Abnormal Movements, Abnormal Speech, Behavioral Changes, Burning Sensations, Confusion, Convulsions, Disequilibrium, Dizziness, Numbness, Focal Weakness, Frequent Falls , Headaches, Lack of Coordination, Loss of Vision, Memory Loss, Paresthesias, Radicular Pain, Restless Legs, Sensory Deficit, Syncope, Tingling, Tremor, Vertigo, Weakness, Other Visual Disturbances, Other - Psychiatric Psychiatric: absent: As Per HPI, Abnormal Sleep Pattern, Anhedonia, Anxiety, Auditory Hallucinations, Behavioral Changes, Change in Appetite, Change in Libido, Confusion, Depression, Difficulty Concentrating, Hallucinations, Homicidal Ideation, Hopelessness, Irritability, Memory Loss, Mood Swings, Panic Attacks, Paranoia, Suicidal Ideation, Visual Hallucinations, Tactile Hallucinations, Other - Endocrine Endocrine: absent: As Per HPI, Change in Body Appearance, Change in Libido, Cold Intolorance, Deepening of Voice, Excessive Sweating, Fatigue, Flushing, Heat Intolorance, Increase in Ring/Shoe/Hat Size, Palpitations, Polydipsia, Polyphagia, Polyuria, Other - Hematologic/Lymphatic Hematologic: absent: As Per HPI, Easy Bleeding, Easy Bruising, Lymphadenopathy, Other Past Patient History - Past Medical History & Family History Past Medical History?: No - Past Social History Smoking Status: Never Smoked - MUSCULOSKELETAL/RHEUMATOLOGICAL Hx Falls: Yes - PSYCHIATRIC Hx Substance Use: No - SURGICAL HISTORY Hx Surgeries: Yes Other/Comment: [place] teeth removal - ANESTHESIA Hx Anesthesia: Yes Hx Anesthesia Reactions: No Hx Malignant Hyperthermia: No Has any member of the family had a problem w/ anesthesia?: No Meds Allergies/Adverse Reactions: Allergies Allergy/AdvReac Type Severity Reaction Status Date / Time No Known Allergies Allergy Verified 06/11/16 08:49 - Medications Medications: Current Medications Enoxaparin Sodium (Lovenox) 40 mg SC DAILY [facility] Last Admin: 06/12/16 10:09 Dose: 40 mg Piperacillin Sod/Tazobactam (Sod 3.375 gm/ Sodium Chloride) 100 mls @ 200 mls/ hr IVPB Q8H [facility] Last Admin: 06/12/16 05:18 Dose: 200 mls/hr Morphine Sulfate (Morphine) 4 mg IVP Q6 PRN PRN Reason: Pain, severe (8-10) Last Admin: 06/12/16 08:03 Dose: 4 mg Pantoprazole Sodium (Protonix Ec Tab) 40 mg PO DAILY [facility] Last Admin: 06/12/16 10:09 Dose: 40 mg Physical Exam - Constitutional Appears: Non-toxic - Head Exam Head Exam: NORMOCEPHALIC - Eye Exam Eye Exam: PERRL. absent: Scleral icterus - ENT Exam ENT Exam: Mucous Membranes Dry, Normal External Ear Exam - Neck Exam Neck exam: Negative for: Lymphadenopathy - Respiratory Exam Respiratory Exam: Decreased Breath Sounds, Clear to Auscultation Bilateral - Cardiovascular Exam Cardiovascular Exam: REGULAR RHYTHM, +S1, +S2 - GI/Abdominal Exam GI & Abdominal Exam: Diminished Bowel Sounds, Soft. absent: Tenderness - Rectal Exam Rectal Exam: Deferred - Exam Exam: NORMAL INSPECTION - Extremities Exam Extremities exam: Positive for: pedal edema, tenderness, pedal pulses present. Negative for: calf tenderness Additional comments: +DP/PT pulses, palpable - Extremities Exam Additional comments: +flex/ext of all toes and great toe, but limited by pain. Sensation intact to sural/saph/SP/DP/med/lat plantar nerves. ? slightly decreased to 1st dorsal webspace. Lower leg compartments soft Minimal pain with passive ROM toes noted laxity with anterior drawer, +pain no right knee pain, no proximal fibular tenderness 3 wounds to lateral ankle noted, anteriorly over distal tib/fib joint, near inferior border of lateral malleolus, and posterior to lateral malleolus. all approx 6-8mm, active but minimal bleeding from inferior wound. Extensive STS to medial and lateral ankle and to foot. - Back Exam Back exam: absent: CVA tenderness (L), CVA tenderness (R) - Neurological Exam Neurological exam: Alert, CN II-XII Intact, Oriented x3, Reflexes Normal - Psychiatric Exam Psychiatric exam: Normal Mood - Skin Skin Exam: Dry Results - Vital Signs Recent Vital Signs: Last Vital Signs Temp 98.1 F 06/12/16 07:56 Pulse 84 06/12/16 07:56 Resp 20 06/12/16 07:56 BP 159/105 H 06/12/16 07:56 Pulse Ox 98 06/12/16 07:56 - Labs Result Diagrams: 06/11/16 12:46 06/11/16 12:46 Assessment & Plan (1) Avulsion fracture of medial malleolus of right tibia Status: Acute (2) Fracture of right talus Status: Acute (3) Open dislocation of ankle Status: Suspected Priority: High - Assessment and Plan (Free Text) Plan: (1) Fracture of right talus Assessment and Plan: comminuted and minimally displaced Status: Acute (2) Avulsion fracture of medial malleolus of right tibia Assessment and Plan: suspect possible deltoid tear/avulsion Status: Acute (3) Open dislocation of ankle Assessment and Plan: noted on CT substantial amount of air in ankle joint and surrounding soft tissues Due to location of lateral ankle wounds and extensive soft tissue swelling, suspect possible open ankle or subtalar dislocation/subluxation with spontaneous reduction versus severe sprain. cont IV antibiotics wound care
[2016-06-12] MEDS ORDERED: Pneumococcal 23-Valent Vaccine IM ONE (14:00)
[2016-06-12 16:44] VITALS: BP 161/100; PULSE 86; TEMP 99
--- NOTE | 2016-06-12 16:48 | CP.PCM.PN ---
Subjective - Date & Time of Evaluation Date of Evaluation: 06/12/16 Time of Evaluation: 11:40 - Subjective Subjective: clinically same Objective - Vital Signs/Intake and Output Vital Signs (last 24 hours): Temp Pulse Resp BP Pulse Ox 99.0 F 86 20 161/100 H 98 06/12/16 15:35 06/12/16 15:35 06/12/16 15:35 06/12/16 15:35 06/12/16 15:35 Intake and Output: 06/12/16 06/12/16 06:59 18:59 Intake Total 400 Output Total 1400 Balance -1000 - Medications Medications: Current Medications Enoxaparin Sodium (Lovenox) 40 mg SC DAILY [facility] Last Admin: 06/12/16 10:09 Dose: 40 mg Piperacillin Sod/Tazobactam (Sod 3.375 gm/ Sodium Chloride) 100 mls @ 200 mls/ hr IVPB Q8H [facility] Last Admin: 06/12/16 05:18 Dose: 200 mls/hr Morphine Sulfate (Morphine) 4 mg IVP Q6 PRN PRN Reason: Pain, severe (8-10) Last Admin: 06/12/16 15:21 Dose: 4 mg Pantoprazole Sodium (Protonix Ec Tab) 40 mg PO DAILY [facility] Last Admin: 06/12/16 10:09 Dose: 40 mg - Labs Labs: PT 10.8 SECONDS (9.7-12.2) 06/11/16 12:46 INR 1.0 06/11/16 12:46 APTT 33 SECONDS (21-34) 06/11/16 12:46 - Constitutional Appears: Well - Head Exam Head Exam: ATRAUMATIC, NORMAL INSPECTION, NORMOCEPHALIC - Eye Exam Eye Exam: EOMI, Normal appearance, PERRL Pupil Exam: NORMAL ACCOMODATION, PERRL - ENT Exam ENT Exam: Mucous Membranes Moist, Normal Exam - Neck Exam Neck Exam: Full ROM, Normal Inspection. absent: Lymphadenopathy - Respiratory Exam Respiratory Exam: Decreased Breath Sounds - Cardiovascular Exam Cardiovascular Exam: REGULAR RHYTHM, +S1, +S2 - GI/Abdominal Exam GI & Abdominal Exam: Soft, Diminished Bowel Sounds - Rectal Exam Rectal Exam: Deferred Assessment and Plan (1) Avulsion fracture of medial malleolus of right tibia Status: Acute (2) Fracture of right talus Status: Acute (3) Open dislocation of ankle Status: Suspected - Assessment and Plan (Free Text) Plan: CT scan shows medial malleolus fracture applied posterior splint to RLE pt. to continue strict elevation and icing of the RLE pt. to remail NEB to RLE, pt. consult ordered for crunch training pt. can be discharged after PT training Pt. will f/u with Dr. amado in her office pt. will require PO Abx and pain medication on discharge
== END 2016-06-12 17:55 | disposition home or self-care (01) ==
LOC: C.ER 08:43 → C.9E 14:02 → C.5T 15:47
PROVIDERS: ADMIT Internal Medicine Nephrology; ATTEND Internal Medicine Nephrology
DX: S82.51XA Displaced fracture of medial malleolus of right tibia, initial encounter for closed fracture (principal); Z87.891 Personal history of nicotine dependence; S92.101G Unspecified fracture of right talus, subsequent encounter for fracture with delayed healing; W10.9XXA Fall (on) (from) unspecified stairs and steps, initial encounter; Y92.522 Railway station as the place of occurrence of the external cause
CPT/HCPCS: 73590; 73610; 73630; 73700; 80048; 85025; 85610; 85730; 90471; 90714; 90732; 96360; 96365; 96374; 97116; 97162; 99285; G0009; G0378; G8978; G8979; J0690; J1650; J2270; J2543; J7040